=== PATIENT | male | born 1980 | race Hispanic/Latino ===

== ENCOUNTER 2023-04-15 11:50 | Emergency (ER) | payer OTHER ==
[~2023-04-15] VITALS: Ht 177.8 cm; Wt 77.1 kg
[2023-04-15 11:56] VITALS: BP 127/74; PULSE 94; RESP 16; O2SAT 98
[2023-04-15] MEDS ORDERED: LIDOCAINE HCL 1% 20 ML VIAL INJ SCH (12:30)
[2023-04-15] MEDS ORDERED: TETANUS/DIPHTHERIA TOXOID [ADULT] 0.5 ML VIAL IM ONE (12:30)
[2023-04-15] MEDS ORDERED: CEPH500B PO (12:59)
[2023-04-15] MEDS ORDERED: ACET-2079 PO (12:59)
== END 2023-04-15 13:31 | disposition home or self-care (01) ==
LOC: EDH 11:50
DX: S40.811A Abrasion of right upper arm, initial encounter (principal); L02.411 Cutaneous abscess of right axilla; Z79.899 Other long term (current) drug therapy; X58.XXXA Exposure to other specified factors, initial encounter; Y93.89 Activity, other specified; Y92.89 Other specified places as the place of occurrence of the external cause; Y99.8 Other external cause status
CPT/HCPCS: 82948; 90471; 90714